=== PATIENT | male | born 1990 | race American Indian/Alaskan Native ===

== ENCOUNTER 2017-07-03 19:34 | Emergency (ER) | payer SELFPAY ==
[2017-07-04 11:32] VITALS: BP 114/74
== END 2017-07-04 04:18 | disposition left against medical advice (07) ==
LOC: ED 19:34
DX: M25.579 Pain in unspecified ankle and joints of unspecified foot (principal); Z53.21 Procedure and treatment not carried out due to patient leaving prior to being seen by health care provider